=== PATIENT | male | born 1960 | race Caucasian/White ===

== ENCOUNTER 2019-03-16 10:13 | Day surgery (SDC) | payer OTHER ==
[~2019-03-16] VITALS: Ht 185.4 cm; Wt 81.6 kg
[2019-03-16] VITALS (8 sets, daily range): BP systolic 102–141; BP diastolic 71–88; PULSE 46–58; RESP 12–28; Ht 185.4 cm; Wt 81.6 kg
[~2019-03-16 10:13] MED LIST: AMLO5TAB4 PO; CYCLOPENTOLATE 1% 2 ML OPH OPER SCH; LACTATED RINGER'S 1,000 ML IV SCH; MOXIFLOXACIN 0.5% 3 ML OPH OPER SCH; OMEP20CA17 PO; PHENYLephrine 2.5% 15 ML OPH OPER SCH; TROPICAMIDE 1% 15 ML OPH OPER SCH
[2019-03-16] MEDS ORDERED: LIDOCAINE 1% (MPF) 30 ML INJ ONE (11:24)
[2019-03-16] MEDS ORDERED: TOBRAMYCIN/DEXAMETH 3.5 GM OPH OINT ONE (11:24)
[2019-03-16] MEDS ORDERED: NA HYALURONATE/CHONDROITIN 0.5 ML SYG ONE (11:24)
[2019-03-16] MEDS ORDERED: TETRACAINE 0.5% 4 ML OPH ONE (11:24)
[2019-03-16] MEDS ORDERED: EPINEPHrine 1 MG INJ ONE (11:24)
[2019-03-16] MEDS ORDERED: TRYPAN BLUE 0.5 ML SYG IO ONE (11:25)
[2019-03-16] MEDS ORDERED: FENTAnyl 50 MCG/ML VIAL ONE (11:41)
[2019-03-16] MEDS ORDERED: MIDAZOLAM 1 MG/ML 2 ML INJ ONE (11:41)
== END 2019-03-16 13:06 | disposition home or self-care (01) ==
LOC: SDS 10:13
PROVIDERS: ATTEND Ophthalmology
DX: H25.041 Posterior subcapsular polar age-related cataract, right eye (principal); I10 Essential (primary) hypertension
CPT/HCPCS: 66984; J0171; J2250; J3010; V2632; Z7512; Z7610